=== PATIENT | female | born 1960 | race Caucasian/White ===

== ENCOUNTER 2022-10-31 15:33 | Emergency (ER) | payer BC ==
[2022-10-31] MEDS ORDERED: Sodium Chloride 0.9% 1,000 ML IV ONE (16:09)
[2022-10-31] MEDS ORDERED: Sodium Chloride 0.9% 10 ML Syringe FLUSH PRN (16:09)
[2022-10-31 16:35] LABS: ESTIMATED GFR 82 mL/min (>60)
[2022-10-31] MEDS ORDERED: Promethazine 12.5 MG in Sodium Chloride 0.9% 50 ML IV ONE (16:43)
[2022-10-31] MEDS ORDERED: Iopamidol 755 Mg/ML 75 ML Bottle IV ONE (18:58)
== END 2022-10-31 20:25 | disposition home or self-care (01) ==
LOC: FB.ED 15:33
DX: K92.1 Melena (principal); R19.7 Diarrhea, unspecified; E86.0 Dehydration; E78.00 Pure hypercholesterolemia, unspecified; Z72.0 Tobacco use; Z79.899 Other long term (current) drug therapy; Z20.822 Contact with and (suspected) exposure to COVID-19
CPT/HCPCS: 36415; 74177; 80053; 81001; 83605; 83735; 85025; 86140; 96361; 96365; 99283; 99284-25; J2550; J3490; J7030; Q9967; U0002